=== PATIENT | male | born 2000 | race Asian ===

== ENCOUNTER 2021-08-17 21:17 | Emergency (ER) | payer MEDICAID, OTHER ==
[~2021-08-17] VITALS: Ht 167.6 cm; Wt 70.8 kg
[2021-08-17 22:43] VITALS: BP 122/65
[2021-08-17] MEDS ORDERED: PRED50TA PO (22:52)
[2021-08-17] MEDS ORDERED: DEXAMETHASONE SOD PHOSPHATE 10 MG/ML VIAL ONE (22:52)
[2021-08-17] MEDS ORDERED: PERM60CR4 TP (22:52)
[2021-08-17] MEDS ORDERED: DEXAMETHASONE SOD PHOSPHATE 4 MG/ML VIAL IM ONE (23:00)
== END 2021-08-17 22:57 | disposition home or self-care (01) ==
LOC: ER 21:21
DX: S40.862A Insect bite (nonvenomous) of left upper arm, initial encounter (principal); S40.861A Insect bite (nonvenomous) of right upper arm, initial encounter; S80.862A Insect bite (nonvenomous), left lower leg, initial encounter; S80.861A Insect bite (nonvenomous), right lower leg, initial encounter; Z79.899 Other long term (current) drug therapy; W57.XXXA Bitten or stung by nonvenomous insect and other nonvenomous arthropods, initial encounter; Y93.89 Activity, other specified; Y92.89 Other specified places as the place of occurrence of the external cause; Y99.8 Other external cause status
CPT/HCPCS: 96372; 99283; J1100